=== PATIENT | male | born 1960 | race African-American/Black ===

== ENCOUNTER 2020-02-19 14:52 | Emergency (ER) | payer OTHER, SELFPAY ==
[2020-02-19 14:59] VITALS: BP 140/91; PULSE 80; RESP 18; TEMP 36.9; O2SAT 100
--- NOTE | 2020-02-19 15:52 | ED.GENADULT ---
HPI - General Adult General Chief complaint: Extremity Injury, Lower <Malcolm Mackey PA-C - Last Filed: 02/19/20 17:23> Stated complaint: Bilateral Foot Pain <Malcolm Mackey PA-C - Last Filed: 02/19/20 17:23> Time Seen by Provider: 02/19/20 15:20 <Malcolm Mackey PA-C - Last Filed: 02/19/20 17:23> Source: patient <Malcolm Mackey PA-C - Last Filed: 02/19/20 17:23> Mode of arrival: ambulatory <Malcolm Mackey PA-C - Last Filed: 02/19/20 17:23> Limitations: no limitations <Malcolm Mackey PA-C - Last Filed: 02/19/20 17:23> History of Present Illness HPI narrative: Patient is a 59-year-old male who presents with 2 to 3 months duration of pain from the mid shins into the feet bilaterally as a burning pain with numbness patient has not seen primary care for this and has been unable to see his primary secondary to COVID testing. Patient on arrival denies injury or trauma has not taken anything for his symptoms. Symptoms are worse with activity and movement <Malcolm Mackey PA-C - Last Filed: 02/19/20 17:23> Related Data Allergies/adverse reactions: Allergies Allergy/AdvReac Type Severity Reaction Status Date / Time No Known Allergies Allergy Verified 02/19/20 15:21 <Malcolm Mackey PA-C - Last Filed: 02/19/20 17:23> Review of Systems Review of Systems: All systems reviewed & are unremarkable except as noted in HPI and below <Malcolm Mackey PA-C - Last Filed: 02/19/20 17:23> [facility] Past Medical History Medical History: Medical History (Updated 02/19/20 @ 17:22 by Malcolm Mackey PA-C) Diabetes mellitus Hypertension Obesity <Malcolm Mackey PA-C - Last Filed: 02/19/20 17:23> Social History Social History: Social History Tobacco type: cigars Gender identity (if verbalized by the patient): Male <ANNEMARIE Hussein Last Filed: 02/19/20 17:23> Exam Narrative: Exam Narrative: GENERAL: Well-appearing, well-nourished, and in no acute distress. HEAD: Normocephalic, atraumatic. EYES: PERRLA and EOMI. ENT: Nares clear, no rhinorrhea or epistaxis. Mucous membranes moist. CHEST: Clear to auscultation. No respiratory distress. No wheezes rales or rhonchi HEART: Regular rate and rhythm. No murmur heard. Normal peripheral pulses. EXTREMITIES: Normal range of motion. No edema. Tenderness of the distal shins and feet with no deformities noted SKIN: Warm, dry, no rash. NEURO: No focal deficits. Alert and oriented x3. Cranial nerves II through XII grossly intact. Neurovascularly intact with capillary refill less than 2 seconds PSYCH: Normal mood and affect. <ANNEMARIE Hussein Last Filed: 02/19/20 17:23> Course Course Emergency Course: Patient in the room in no distress with what sounds like peripheral neuropathy or nerve pain was given pain medication aware of the blood work findings and will be referred to primary care for further evaluation <ANNEMARIE Hussein Last Filed: 02/19/20 17:23> Vital Signs Vital signs: Vital Signs Temperature 98.5 F 02/19/20 14:59 Pulse Rate 80 02/19/20 14:59 Respiratory Rate 18 02/19/20 14:59 Blood Pressure 140/91 H 02/19/20 14:59 Pulse Oximetry 100 02/19/20 14:59 Temperature 98.5 F 02/19/20 14:59 Pulse Rate 80 02/19/20 14:59 Respiratory Rate 18 02/19/20 14:59 Blood Pressure 140/91 H 02/19/20 14:59 Pulse Oximetry 100 02/19/20 14:59 <ANNEMARIE Hussein Last Filed: 02/19/20 17:23> Vital Signs Temperature 98.5 F 02/19/20 14:59 Pulse Rate 80 02/19/20 14:59 Respiratory Rate 18 02/19/20 14:59 Blood Pressure 140/91 H 02/19/20 14:59 Pulse Oximetry 100 02/19/20 14:59 Temperature 98.5 F 02/19/20 14:59 Pulse Rate 80 02/19/20 14:59 Respiratory Rate 18 02/19/20 14:59 Blood Pressure 140/91 H 02/19/20 14:59 Pulse Oximetry 100 02/19/20 14:59
[2020-02-19 16:41] LABS: Basophils Percent Auto 0.4 % (0.2-1.2); Eosinophils Absolute Auto 0.1 K/mm3 (0-0.3); Eosinophils Percent Auto 1.1 % (0-4.4); Hematocrit 35.4 % (42.0-52.0); Hemoglobin 12.2 g/dL (14.0-18.0); Immature Granulocyte Absolute 0.03 K/mm3 (0.00-0.031); Immature Granulocyte Percent A 0.4 % (0-0.5); Lymphocytes Absolute Auto 2.48 K/mm3 (0.9-3.2); Mean Corpuscular HGB Conc 34.5 g/dl (32-36); Mean Corpuscular Hemoglobin 32.4 pg (26-34); Mean Corpuscular Volume 93.9 fl (80-100); Mean Platelet Volume 9.9 fl (7.4-10.4); Monocytes Absolute Auto 0.5 K/mm3 (0.1-0.6); Monocytes Percent Auto 6.6 % (2.6-8.5); Neutrophils Absolute Auto 4.2 K/mm3 (1.3-6.7); Neutrophils Percent Auto 57.5 % (45.5-73.1); Platelet Count Result 219 k/mm3 (150-375); Red Blood Count 3.77 M/mm3 (4.6-6.20); Red Cell Distribution Width 12.3 % (11.5-14.5); White Blood Count 7.3 K/mm3 (4.5-10.0)
[2020-02-19 17:02] LABS: Anion Gap 9.1 mmol/L (7-16); Blood Urea Nitrogen 17 mg/dL (9-20); Carbon Dioxide 25 mmol/L (22-30); Chloride 106 mmol/L (98-107); Estimated CRCL calculation 97 ml/min; Estimated Glomerular Filt Rate > 60; Glucose 131 mg/dL (75-110); Potassium 4.1 mmol/L (3.4-5.0); Sodium 136 mmol/L (137-145)
== END 2020-02-19 17:36 | disposition home or self-care (01) ==
PROVIDERS: Emergency Medicine Emergency Medical Services; Emergency Provider General Practice
DX: M79.662 Pain in left lower leg (principal); M79.661 Pain in right lower leg; E11.9 Type 2 diabetes mellitus without complications; I10 Essential (primary) hypertension
CPT/HCPCS: 36415; 80048; 85025; 99283; A9270

== ENCOUNTER 2020-04-04 14:58 | Emergency (ER) | payer OTHER, SELFPAY ==
[2020-04-04 15:07] VITALS: BP 145/90; PULSE 86; RESP 18; TEMP 36.2; O2SAT 100
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
== END 2020-04-04 16:35 | disposition home or self-care (01) ==
PROVIDERS: Emergency Provider Emergency Medicine
DX: T24.211A Burn of second degree of right thigh, initial encounter (principal); L92.8 Other granulomatous disorders of the skin and subcutaneous tissue; E11.9 Type 2 diabetes mellitus without complications; I10 Essential (primary) hypertension; F17.290 Nicotine dependence, other tobacco product, uncomplicated; T31.0 Burns involving less than 10% of body surface; X12.XXXA Contact with other hot fluids, initial encounter
CPT/HCPCS: 99282